=== PATIENT | female | born 1970 | race Caucasian/White ===

== ENCOUNTER → 2019-07-03 | Outpatient (CLI) | payer SELFPAY ==
[2019-07-03 17:02] LABS: Total Protein,CSF 48 mg/dL (12-60)
[2019-07-03 22:10] LABS: Appearance,CSF Clear; CSF Tube Number 4; Nucleated Cells, CSF 0 u/L (0-5); Red Blood Cell,CSF 0 u/L (0-10)
[2019-07-05 11:48] LABS: IgG - CSF 2.2 mg/dL (0.0 - 3.4); Immunoglobulin G 674 mg/dL (700 - 1600)
== END | disposition home or self-care (01) ==
LOC: LABWHC1 10:45
PROVIDERS: ATTEND Nurse Practitioner Family
DX: H53.8 Other visual disturbances (principal); R90.82 White matter disease, unspecified
CPT/HCPCS: 36415; 82040; 82042; 82784; 83873; 83916; 84157; 87801; 89050